=== PATIENT | male | born 1965 | race American Indian/Alaskan Native ===

== ENCOUNTER 2017-05-26 19:58 | Emergency (ER) | payer SELFPAY ==
[2017-05-26 20:28] VITALS: BP 139/91
--- NOTE | 2017-05-26 22:28 | Emergency Department Report ---
Abscess Boil HPI - HPI Chief Complaint: Skin/Abscess/Foreign Body Stated Complaint: RT SIDE FACE SWOLLEN Time Seen by Provider: 05/26/17 22:07 Duration: 5 Days Location: Head Severity: Mild History: Yes Pain, Yes Purulent Drainage, No Fever, No Numbness, No Foreign Body , No Previous History, No Insect Bite Home Medications: Previous Rx's Medication Instructions Recorded Last Taken Type Cyclobenzaprine [Flexeril 10mg] 10 mg PO TID #30 tablet 05/01/14 Unknown Rx HYDROcodone/APAP 7.5-325 [[place] 1 each PO Q6HR PRN #20 tablet 05/01/14 Unknown Rx 7.5/325 mg] Ibuprofen [Motrin] 600 mg PO Q8H PRN #60 tablet 05/01/14 Unknown Rx Cephalexin [Keflex] 500 mg PO TID #30 capsule 05/26/17 Unknown Rx Naproxen [Naprosyn TAB] 500 mg PO BID #30 tablet 05/26/17 Unknown Rx Allergies/Adverse Reactions: Allergies Allergy/AdvReac Type Severity Reaction Status Date / Time No Known Allergies Allergy Verified 05/26/17 20:25 ED Review of Systems ROS: Stated complaint: RT SIDE FACE SWOLLEN Other details as noted in HPI Constitutional: denies: chills, fever Eyes: denies: eye pain, eye discharge, vision change ENT: denies: ear pain, throat pain Respiratory: denies: cough, shortness of breath, wheezing Cardiovascular: denies: chest pain, palpitations Endocrine: no symptoms reported Gastrointestinal: as per HPI Genitourinary: as per HPI Musculoskeletal: denies: back pain, joint swelling, arthralgia Skin: other (abscess right chin) Neurological: denies: headache, weakness, paresthesias Psychiatric: denies: anxiety, depression Hematological/Lymphatic: denies: easy bleeding, easy bruising ED Past Medical Hx - Past Medical History Previous Medical History?: No - Surgical History Past Surgical History?: No - Social History Smoking Status: Current Every Day Smoker Substance Use Type: Alcohol - Medications Home Medications: Home Medications Medication Instructions Recorded Confirmed Last Taken Type Cyclobenzaprine [Flexeril 10mg] 10 mg PO TID #30 tablet 05/01/14 Unknown Rx HYDROcodone/APAP 7.5-325 [[place] 1 each PO Q6HR PRN #20 tablet 05/01/14 Unknown Rx 7.5/325 mg] Ibuprofen [Motrin] 600 mg PO Q8H PRN #60 tablet 05/01/14 Unknown Rx Cephalexin [Keflex] 500 mg PO TID #30 capsule 05/26/17 Unknown Rx Naproxen [Naprosyn TAB] 500 mg PO BID #30 tablet 05/26/17 Unknown Rx ED Abscess Boil Physical Exam - Exam General: Vital signs noted. No distress. Alert and acting appropriately. Front/Back of Body, Lg (Color): 1 - right chin abscess 1x1 irregular raised smooth, scant purulent drainage no oral involvment Size: 1 cm Exam: Yes Tenderness, Yes Fluctuance, Yes Surrounding Cellulites/Erythema, Yes Normal Neurologic Exam, Yes Normal Circulation, No Lymphangitis, No Crepitation , No Heart Murmur I & D Note - I & D Note I & D Note: abscess cleaned wtih alcohol, betadine solution,ingrown hair removed approx 3 cm, 18g needle decompression and expression of purulent drainage moderate amount, wound left open , pt given wound care instructions include warm compress, wash with soap and water, pt tolerated procudure with minimal distress, ED Course Vital Signs 05/26/17 20:25 Temperature 98.2 F Pulse Rate 97 H Respiratory 16 Rate Blood Pressure 139/91 O2 Sat by Pulse 97 Oximetry Critical care attestation.: If time is entered above; I have spent that time in minutes in the direct care of this critically ill patient, excluding procedure time. ED Medical Decision Making - Medical Decision Making pt is a 52 y/o aam with hx of htn, who presents for right chin abscess 1x1 raised smooth fluctuant painful to touch drianing purulent discharge , 18g needle decompression and ingrown hair removal , pt tolerated same with minimal distress, dc to self , keflex, naproxen, pt will follow up with primary doctor in 2-3 days for wound check . pt verbalized agreement and understanding with same. ED Disposition Clinical Impression: Abscess of face Disposition: DC-01 TO HOME OR SELFCARE Is pt being admited?: No Does the pt Need Aspirin: No Condition: Good Instructions: Abscess (ED) Prescriptions: Cephalexin [Keflex] 500 mg PO TID #30 capsule Naproxen [Naprosyn TAB] 500 mg PO BID #30 tablet Referrals: PRIMARY CARE, [Primary Care Provider] - 3-5 Days Forms: Work/School Release Form(ED) Time of Disposition: 22:32
== END 2017-05-26 22:39 | disposition home or self-care (01) ==
LOC: ED 19:58
DX: L02.01 Cutaneous abscess of face (principal); F17.200 Nicotine dependence, unspecified, uncomplicated
CPT/HCPCS: 99282